=== PATIENT | female | born 2000 | race Caucasian/White ===

== ENCOUNTER 2022-10-09 21:09 | Inpatient (IN) | payer BC ==
[~2022-10-09] VITALS: Ht 167.6 cm; Wt 78.9 kg
[2022-10-09 21:30] VITALS: BP 119/80; PULSE 85
--- NOTE | 2022-10-09 21:30 | NUR ---
Ambulatory to unit for labor assessment, accompanied by spouse. Oriented to room, monitor, plan of care. Pt reports "contractions started about 3 hours ago, and they're getting stronger."
[2022-10-09 22:35] VITALS: BP 117/77; PULSE 86
[2022-10-09 23:15] VITALS: BP 116/72; PULSE 94
[2022-10-10] VITALS (11 sets, daily range): BP systolic 98–128; BP diastolic 53–82; PULSE 76–98; TEMP 97.8–98.8
--- NOTE | 2022-10-10 00:08 | NUR ---
Dr Avelar into room, SVE 3. Discusses plan of care with pt and spouse. [address] Avelar confirms breech presentation. Pt off monitor, up to bathroom.
[2022-10-10 01:01] LABS: BASO % 0.2 % (0.0-2.0); EOS # 0.1 K/mm3 (0.0-0.7); EOS % 0.7 % (0.0-4.0); GRAN # 9.2 K/mm3 (1.4-6.5); GRAN % 75.7 % (42.2-75.2); HEMATOCRIT 37.1 % (37.0-47.0); HEMOGLOBIN 13.1 g/dl (12.5-16.0); LYMPH # 2.1 K/mm3 (1.2-3.4); LYMPH % 17.4 % (20.0-51.0); MEAN CELL VOLUME 89 fl (80.0-100.0); MEAN CORPUSCULAR HEMOGLOBIN 31 pg (27-31); MEAN CORPUSCULAR HGB CONC 35 g/dl (33.0-37.0); MEAN PLATELET VOLUME 9.8 fl (7.4-10.4); MONO # 0.7 K/mm3 (0.1-0.6); MONO % 5.5 % (1.7-9.3); PLATELET COUNT 206 K/mm3 (130-400); RED BLOOD COUNT 4.19 M/mm3 (4.10-5.30); REDCELL DISTRIBUTION WIDTH-CV 12.6 % (11.5-14.5)
--- NOTE | 2022-10-10 01:07 | NUR ---
Off monitor, up to bathroom, then ambulates to C/S room.
[2022-10-10 01:53] LABS: TRICYCLIC ANTIDEPRESS URINE NEGATIVE
[2022-10-10] MEDS ORDERED: PRENATAL TABLET PO (03:56)
--- NOTE | 2022-10-10 13:30 | NUR ---
FULL SENSATION TO BLE. LOCHIA SCANT. FUNDUS FIRM AT UMBILICUS WITH MASSAGE. PT TO SITTING POSITION ON EDGE OF BED, DENIES DIZZINESS. PT TO STANDING POSITION WITH UNSTEADY GAIT. PT ABLE TO WALK AROUND ROOM SAFELY, AND BEGINS TO GAIN STRENGTH. PT BACK TO BED. PETERSON CATHETER REMOVED. NEW GOWN, UNDERWEAR, BRYNN CARE AND PAD PROVIDED. PT REMAINS IN BED RESTING, DENIES FURTHER NEEDS AT THIS TIME. TOLERATED ACTIVITY WELL.
[2022-10-11 07:10] VITALS: BP 117/78; PULSE 79; TEMP 97.9
--- NOTE | 2022-10-11 07:10 | NUR ---
PATIENT TEARFUL AND STATES IS REALLY HURTING. MEDICATED WITH TYLENOL AND HERMES. WARMER BLANKET PROVIDED TO RIGHT SHOULD FOR SHOULDER PAIN.
--- NOTE | 2022-10-11 09:30 | NUR ---
MOM STATES HAS BLOOD BLISTER ON RIGHT NIPPLE AFTER BABY NURSED. STATES SHE THOUGHT THE DISCOMFORT WAS THE SAME THE LAST FEEDING. LANSINOH CREAM PROVIDED. EDUCATED WE WILL CONITNUE TO WORK ON LATCH TODAY IT SHOULD NOT BE PAINFUL WHEN WE HAVE HER LATCHED CORRECTLY.
[2022-10-11 16:15] VITALS: BP 117/74; PULSE 93; TEMP 98.4
[2022-10-11 20:00] VITALS: BP 121/69; PULSE 83; TEMP 98.3
--- NOTE | 2022-10-11 22:50 | NUR ---
MOM IS REQUESTING A BREAST PUMP- BECAUSE SHE WANTS TO BE ABLE TO PUMP IF SHE IS SLEEPY AND IF THEY HAVE A DATE NIGHT- I ENCOURAGED THE PT. TO WAIT UNTIL MORNING BECAUSE SHE STATED SHE HAS NOT GOTTEN ANY QUALITY SLEEP THE LAST FEW DAYS. PT DOESN'T WANT TO WAIT- SUPPLIES BROUGHT IN AND EXPLAINED TO PARENTS.
[2022-10-12] VITALS: BP 124/70; PULSE 84; TEMP 98.1
[2022-10-12 04:00] VITALS: BP 124/64; PULSE 78; TEMP 98.1
[2022-10-12 07:40] VITALS: BP 115/76; PULSE 77; TEMP 98
[2022-10-12] MEDS ORDERED: ROXICODONE 55 MG/TAB PO (09:30)
[2022-10-12] MEDS ORDERED: IBU600 MG PO (09:30)
== END 2022-10-12 12:30 | disposition home or self-care (01) | DRG 788 ==
LOC: LDRO 21:09 → LDR 10-10 00:42 → OB 10-10 00:42
PROVIDERS: ADMIT Obstetrics & Gynecology
PROC: 10D00Z1 Extraction of Products of Conception, Low, Open Approach (ICD-10-PCS; principal; 2022-10-10)
DX: O32.1XX0 Maternal care for breech presentation, not applicable or unspecified (principal); O99.344 Other mental disorders complicating childbirth; F32.A Depression, unspecified; Z3A.37 37 weeks gestation of pregnancy; Z37.0 Single live birth; M41.9 Scoliosis, unspecified; O99.892 Other specified diseases and conditions complicating childbirth
CPT/HCPCS: J0171; J0690; J1100; J1885; J2370; J2405; J2590; J7120